=== PATIENT | female | born 1945 | race Caucasian/White ===

== ENCOUNTER 2019-05-22 14:40 | Inpatient (IN) | payer OTHER ==
[2019-05-22 15:23] LABS: ADD MAN DIFF? NO
[2019-05-22 15:24] LABS: BASOPHIL # 0.1 10^3/ul (0.0-0.1); BASOPHILS % 0.6 % (0.0-2.0); EOSINOPHILS # 0.7 10^3/ul (0.0-0.5); HEMOGLOBIN 11.3 g/dl (12.0-16.0); LYMPHOCYTES # 2.1 10^3/ul (0.8-2.9); LYMPHOCYTES % 22.4 % (15.0-51.0); MEAN CORPUSCULAR HEMOGLOBIN 31.1 pg (29.0-33.0); MEAN CORPUSCULAR HGB CONC 31.4 g/dl (32.0-37.0); MEAN CORPUSCULAR VOLUME 99.2 fl (82.0-101.0); MEAN PLATELET VOLUME 9.1 fl (7.4-10.4); MONOCYTE # 0.8 10^3/ul (0.3-0.9); NEUTROPHIL # 5.8 10^3/ul (1.6-7.5); NEUTROPHILS % 61.4 % (39.0-77.0); PLATELET COUNT 210 10^3/UL (140-415); RED BLOOD COUNT 3.63 10^6/ul (4.20-5.40); RED CELL DISTRIBUTION WIDTH 13.6 % (11.5-14.5)
[2019-05-22 15:24] LABS: WHITE BLOOD COUNT 9.4 10^3/ul (4.8-10.8)
[2019-05-22] MEDS: ONDANSETRON 4 MG INJ IV ×2 (15:41→23:17)
[2019-05-22 15:43] LABS: INR 1.03; PROTIME 13.6 Sec (11.9-14.9); PT RATIO 1.1
[2019-05-22 15:44] LABS: PARTIAL THROMBOPLASTIN TIME 31.5 Sec (23.0-35.0)
[2019-05-22 16:01] LABS: ALANINE AMINOTRANSFERASE 29 IU/L (13-69); ALBUMIN 3.8 g/dl (3.3-4.9); ALKALINE PHOSPHATASE 151 IU/L (42-121); ANION GAP 7 (5-13); ASPARTATE AMINO TRANSFERASE 52 IU/L (15-46); BILIRUBIN,INDIRECT 0.6 mg/dl (0-1.1); BILIRUBIN,TOTAL 0.6 mg/dl (0.2-1.3); BLOOD UREA NITROGEN 32 mg/dl (7-20); CALCIUM 9.4 mg/dl (8.4-10.2); CARBON DIOXIDE 35 mmol/L (21-31); CHLORIDE 96 mmol/L (97-110); CREATININE 1.37 mg/dl (0.44-1.00); GLUCOSE 129 mg/dl (70-220); LIPASE 579 U/L (23-300); POTASSIUM 3.4 mmol/L (3.5-5.1); SODIUM 138 mmol/L (135-144)
[2019-05-22 16:13] LABS: TROPONIN-I < 0.012 ng/ml (0.000-0.120)
[2019-05-22] MEDS: SOD CHLORIDE 0.9% 1,000 ML IV (16:41)
[2019-05-22 16:59] LABS: ADD UMIC YES; UR ASCORBIC ACID NEGATIVE (NEGATIVE); UR BILIRUBIN (Dip) NEGATIVE (NEGATIVE); UR BLOOD (Dip) 1+ mg/dL (NEGATIVE); UR CLARITY CLEAR (CLEAR); UR COLOR STRAW (YELLOW); UR GLUCOSE (Dip) NEGATIVE (NEGATIVE); UR KETONES (Dip) NEGATIVE (NEGATIVE); UR LEUKOCYTE ESTERASE (Dip) NEGATIVE Leu/ul (NEGATIVE); UR NITRITE (Dip) NEGATIVE (NEGATIVE); UR RBC 0 /HPF (0-5); UR SPECIFIC GRAVITY (Dip) 1.004 (1.003-1.030); UR TOTAL PROTEIN (Dip) NEGATIVE (NEGATIVE); UR UROBILINOGEN (Dip) NEGATIVE (NEGATIVE); UR WBC 0 /HPF (0-5)
[2019-05-22] MEDS: MECLIZINE 12.5 MG TAB PO (17:28)
[2019-05-22] MEDS: IOHEXOL 0 ML (19:13)
[2019-05-22] MEDS: SOD CHLORIDE 0.9% 100 ML (19:13)
[2019-05-22] MEDS: IODIXANOL LOCM 100 ML BTL (19:14)
[2019-05-22] MEDS ORDERED: ONDANSETRON 4 MG INJ IV (19:30)
[2019-05-22] MEDS ORDERED: ACETAMINOPHEN 325 MG TAB PO (19:30)
[2019-05-22] MEDS ORDERED: ONDANSETRON 4 MG TAB PO (21:30)
[2019-05-22] MEDS ORDERED: NACL 0.9% 3 ML SYG IV (21:30)
[2019-05-22] MEDS: BUDESONIDE (NEB) 0.5MG/2ML AMP HHN (21:30)
[2019-05-22] MEDS: ASPIRIN 325 MG TAB PO (21:45)
[2019-05-22] MEDS: DOCUSATE SODIUM 100 MG CAP PO (23:08)
[2019-05-22] MEDS: METOCLOPRAMIDE 10 MG INJ IV (23:17)
[2019-05-23] MEDS ORDERED: DOCUSATE SODIUM 100 MG CAP PO (01:00)
[2019-05-23] MEDS ORDERED: MECLIZINE 25 MG TAB PO (01:00)
[2019-05-23] MEDS ORDERED: LEVOTHYROXINE 100 MCG TAB PO (01:00)
[2019-05-23] MEDS ORDERED: BUMETANIDE 0.5 MG TAB PO ×3 (01:00→09:00)
[2019-05-23] MEDS ORDERED: GLUCOSE GEL 15 GRAM TUBE BUCCAL (02:00)
[2019-05-23] MEDS ORDERED: GLUCAGON 1 MG INJ IM (02:00)
[2019-05-23] MEDS ORDERED: DEXTROSE 50% 50 ML SYRINGE IV ×2 (02:00)
[2019-05-23] MEDS ORDERED: GLUCOSE GEL 15 GRAM TUBE PO ×2 (02:00)
[2019-05-23] MEDS: POTASSIUM CHLORIDE (SR) 20 MEQ TAB PO (02:02)
[2019-05-23] MEDS: INSULIN ASPART [NOVOLOG] 3 ML PEN SC ×6 (02:02→20:25)
[2019-05-23] MEDS: LEVALBUTEROL (NEB) 0.63 MG/3 ML AMP HHN (03:33)
[2019-05-23] MEDS: FUROSEMIDE 20 MG TAB PO (06:46)
[2019-05-23] MEDS: LEVOTHYROXINE 100 MCG TAB PO (06:46)
[2019-05-23 07:14] LABS: MAGNESIUM 2.3 mg/dl (1.7-2.5)
[2019-05-23 07:14] LABS: CHOL/HDL RATIO 4.5 RATIO; CHOLESTEROL 124 mg/dl (100-200); HDL CHOLESTEROL 27 mg/dl (33-92); LDL CHOLESTEROL,CALCULATED 77 mg/dl; TRIGLYCERIDES 101 mg/dl (0-149)
[2019-05-23 07:34] LABS: HEMOGLOBIN A1C 4.9 % (0-5.9)
[2019-05-23 08:53] LABS: ADD MAN DIFF? NO
[2019-05-23 09:08] LABS: BASOPHIL # 0.1 10^3/ul (0.0-0.1); BASOPHILS % 0.5 % (0.0-2.0); EOSINOPHILS # 0.7 10^3/ul (0.0-0.5); EOSINOPHILS % 7.4 % (0.0-7.0); HEMATOCRIT 33.6 % (37.0-47.0); HEMOGLOBIN 10.7 g/dl (12.0-16.0); LYMPHOCYTES # 2.2 10^3/ul (0.8-2.9); MEAN CORPUSCULAR HEMOGLOBIN 32.2 pg (29.0-33.0); MEAN CORPUSCULAR HGB CONC 31.8 g/dl (32.0-37.0); MEAN CORPUSCULAR VOLUME 101.2 fl (82.0-101.0); MONOCYTE # 0.8 10^3/ul (0.3-0.9); MONOCYTES % 9.1 % (0.0-11.0); NEUTROPHIL # 5.4 10^3/ul (1.6-7.5); NEUTROPHILS % 58.2 % (39.0-77.0); PLATELET COUNT 202 10^3/UL (140-415); RED BLOOD COUNT 3.32 10^6/ul (4.20-5.40); RED CELL DISTRIBUTION WIDTH 13.6 % (11.5-14.5)
[2019-05-23 09:08] LABS: WHITE BLOOD COUNT 9.2 10^3/ul (4.8-10.8)
[2019-05-23 09:12] LABS: ALANINE AMINOTRANSFERASE 29 IU/L (13-69); ALBUMIN 3.2 g/dl (3.3-4.9); ALBUMIN/GLOBULIN RATIO 0.86; ALKALINE PHOSPHATASE 140 IU/L (42-121); ANION GAP 9 (5-13); ASPARTATE AMINO TRANSFERASE 46 IU/L (15-46); BILIRUBIN,INDIRECT 0.6 mg/dl (0-1.1); BILIRUBIN,TOTAL 0.6 mg/dl (0.2-1.3); BLOOD UREA NITROGEN 26 mg/dl (7-20); CALCIUM 9.2 mg/dl (8.4-10.2); CARBON DIOXIDE 30 mmol/L (21-31); CHLORIDE 105 mmol/L (97-110); CREATININE 1.14 mg/dl (0.44-1.00); GLUCOSE 68 mg/dl (70-220); POTASSIUM 4.1 mmol/L (3.5-5.1); SODIUM 144 mmol/L (135-144); TOTAL PROTEIN 6.9 g/dl (6.1-8.1)
[2019-05-23] MEDS: BUDESONIDE (NEB) 0.5MG/2ML AMP HHN ×2 (09:22→20:06)
[2019-05-23 09:27] LABS: FREE T3 2.71 pg/ml (2.77-5.27)
[2019-05-23 09:27] LABS: FREE T4 (FREE THYROXINE) 1.52 ng/dl (0.78-2.44)
[2019-05-23] MEDS: DOCUSATE SODIUM 100 MG CAP PO ×2 (09:55→20:25)
[2019-05-23] MEDS: HYDROCORTISONE 25 MG SUPP PR ×2 (09:55→20:24)
[2019-05-23] MEDS: ASPIRIN 81 MG TAB PO (09:55)
[2019-05-23] MEDS: CHOLECALCIFEROL 1,000 UNIT TAB PO (09:55)
[2019-05-23 15:44] LABS: B-TYPE NATRIURETIC PEPTIDE 1420 PG/ML (0-125)
[2019-05-23 19:01] LABS: TROPONIN-I < 0.012 ng/ml (0.000-0.120)
[2019-05-23] MEDS: ATORVASTATIN 80 MG TAB PO (20:24)
[2019-05-24] MEDS: INSULIN ASPART [NOVOLOG] 3 ML PEN SC ×6 (01:00→21:00)
[2019-05-24 01:22] LABS: TROPONIN-I < 0.012 ng/ml (0.000-0.120)
[2019-05-24] MEDS: hydrALAzine 20 MG INJ IV (05:55)
[2019-05-24] MEDS: LEVOTHYROXINE 100 MCG TAB PO (05:55)
[2019-05-24 06:05] LABS: ADD MAN DIFF? NO
[2019-05-24 06:09] LABS: BASOPHIL # 0.1 10^3/ul (0.0-0.1); BASOPHILS % 0.8 % (0.0-2.0); EOSINOPHILS # 0.5 10^3/ul (0.0-0.5); EOSINOPHILS % 5.4 % (0.0-7.0); HEMATOCRIT 34.6 % (37.0-47.0); HEMOGLOBIN 10.9 g/dl (12.0-16.0); LYMPHOCYTES # 2.1 10^3/ul (0.8-2.9); MEAN CORPUSCULAR HGB CONC 31.5 g/dl (32.0-37.0); MEAN CORPUSCULAR VOLUME 101.5 fl (82.0-101.0); MEAN PLATELET VOLUME 9.7 fl (7.4-10.4); MONOCYTE # 0.8 10^3/ul (0.3-0.9); MONOCYTES % 8.1 % (0.0-11.0); NEUTROPHIL # 6.1 10^3/ul (1.6-7.5); NEUTROPHILS % 63.1 % (39.0-77.0); PLATELET COUNT 186 10^3/UL (140-415); RED BLOOD COUNT 3.41 10^6/ul (4.20-5.40); RED CELL DISTRIBUTION WIDTH 13.5 % (11.5-14.5)
[2019-05-24 06:09] LABS: WHITE BLOOD COUNT 9.7 10^3/ul (4.8-10.8)
[2019-05-24 06:42] LABS: ALANINE AMINOTRANSFERASE 20 IU/L (13-69); ALBUMIN 3.2 g/dl (3.3-4.9); ALBUMIN/GLOBULIN RATIO 0.88; ALKALINE PHOSPHATASE 148 IU/L (42-121); ANION GAP 6 (5-13); ASPARTATE AMINO TRANSFERASE 43 IU/L (15-46); BILIRUBIN,INDIRECT 0.7 mg/dl (0-1.1); BILIRUBIN,TOTAL 0.7 mg/dl (0.2-1.3); BLOOD UREA NITROGEN 23 mg/dl (7-20); CALCIUM 9.2 mg/dl (8.4-10.2); CARBON DIOXIDE 31 mmol/L (21-31); CHLORIDE 104 mmol/L (97-110); CREATININE 1.07 mg/dl (0.44-1.00); GLUCOSE 84 mg/dl (70-220); POTASSIUM 4.1 mmol/L (3.5-5.1); SODIUM 141 mmol/L (135-144); TOTAL PROTEIN 6.8 g/dl (6.1-8.1)
[2019-05-24 06:58] LABS: TROPONIN-I < 0.012 ng/ml (0.000-0.120)
[2019-05-24 07:34] LABS: CHOLESTEROL 135 mg/dl (100-200)
[2019-05-24 07:34] LABS: CHOL/HDL RATIO 4.3 RATIO; HDL CHOLESTEROL 31 mg/dl (33-92); LDL CHOLESTEROL,CALCULATED 86 mg/dl; TRIGLYCERIDES 92 mg/dl (0-149)
[2019-05-24] MEDS: DOCUSATE SODIUM 100 MG CAP PO ×2 (09:15→21:41)
[2019-05-24] MEDS: CHOLECALCIFEROL 1,000 UNIT TAB PO (09:15)
[2019-05-24] MEDS: ASPIRIN 81 MG TAB PO (09:15)
[2019-05-24] MEDS: HYDROCORTISONE 25 MG SUPP PR ×2 (09:15→21:40)
[2019-05-24] MEDS: BUDESONIDE (NEB) 0.5MG/2ML AMP HHN ×2 (09:28→20:05)
[2019-05-24] MEDS: ACETAMINOPHEN 325 MG TAB PO (10:26)
[2019-05-24] MEDS: ONDANSETRON 4 MG INJ IV (17:39)
[2019-05-24] MEDS: ATORVASTATIN 80 MG TAB PO (21:40)
[2019-05-25] MEDS: hydrALAzine 20 MG INJ IV (01:02)
[2019-05-25 05:13] LABS: ADD MAN DIFF? NO
[2019-05-25 05:18] LABS: BASOPHIL # 0.1 10^3/ul (0.0-0.1); BASOPHILS % 0.7 % (0.0-2.0); EOSINOPHILS # 0.7 10^3/ul (0.0-0.5); EOSINOPHILS % 6.8 % (0.0-7.0); HEMATOCRIT 36.2 % (37.0-47.0); HEMOGLOBIN 11.4 g/dl (12.0-16.0); LYMPHOCYTES # 2.3 10^3/ul (0.8-2.9); LYMPHOCYTES % 23.2 % (15.0-51.0); MEAN CORPUSCULAR HEMOGLOBIN 31.7 pg (29.0-33.0); MEAN CORPUSCULAR HGB CONC 31.5 g/dl (32.0-37.0); MEAN CORPUSCULAR VOLUME 100.6 fl (82.0-101.0); MEAN PLATELET VOLUME 9.3 fl (7.4-10.4); NEUTROPHIL # 5.9 10^3/ul (1.6-7.5); NEUTROPHILS % 58.8 % (39.0-77.0); PLATELET COUNT 195 10^3/UL (140-415); RED CELL DISTRIBUTION WIDTH 13.4 % (11.5-14.5)
[2019-05-25 06:05] LABS: MAGNESIUM 2.2 mg/dl (1.7-2.5)
[2019-05-25 06:14] LABS: ALANINE AMINOTRANSFERASE 22 IU/L (13-69); ALBUMIN 3.3 g/dl (3.3-4.9); ALBUMIN/GLOBULIN RATIO 0.89; ALKALINE PHOSPHATASE 151 IU/L (42-121); ANION GAP 7 (5-13); ASPARTATE AMINO TRANSFERASE 43 IU/L (15-46); BILIRUBIN,INDIRECT 0.8 mg/dl (0-1.1); BILIRUBIN,TOTAL 0.8 mg/dl (0.2-1.3); BLOOD UREA NITROGEN 26 mg/dl (7-20); CALCIUM 9.2 mg/dl (8.4-10.2); CARBON DIOXIDE 30 mmol/L (21-31); CHLORIDE 105 mmol/L (97-110); CREATININE 1.12 mg/dl (0.44-1.00); GLUCOSE 98 mg/dl (70-220); POTASSIUM 3.7 mmol/L (3.5-5.1); SODIUM 142 mmol/L (135-144)
[2019-05-25] MEDS: LEVOTHYROXINE 100 MCG TAB PO (06:20)
[2019-05-25] MEDS: INSULIN ASPART [NOVOLOG] 3 ML PEN SC ×4 (07:00→21:00)
[2019-05-25] MEDS: BUDESONIDE (NEB) 0.5MG/2ML AMP HHN ×2 (07:59→21:29)
[2019-05-25] MEDS: ASPIRIN 81 MG TAB PO (08:17)
[2019-05-25] MEDS: CHOLECALCIFEROL 1,000 UNIT TAB PO (08:17)
[2019-05-25] MEDS: LISINOPRIL 20 MG TAB PO (08:18)
[2019-05-25] MEDS: HYDROCORTISONE 25 MG SUPP PR ×2 (08:18→21:03)
[2019-05-25] MEDS: SERTRALINE 50 MG TAB PO (08:18)
[2019-05-25] MEDS: ONDANSETRON 4 MG INJ IV (08:19)
[2019-05-25] MEDS: DOCUSATE SODIUM 100 MG CAP PO ×2 (10:22→21:03)
[2019-05-25] MEDS: PANTOPRAZOLE 40 MG INJ IV (10:22)
[2019-05-25 10:24] LABS: LIPASE 245 U/L (23-300)
[2019-05-25] MEDS: SUCRALFATE (100 MG/ML) 10ML CUP PO ×3 (12:07→21:03)
[2019-05-25] MEDS: SCOPOLAMINE 1.5 MG PATCH TRANSDERM (12:07)
[2019-05-25] MEDS: METOCLOPRAMIDE 10 MG INJ IV (16:18)
[2019-05-25] MEDS: ATORVASTATIN 80 MG TAB PO (21:04)
[2019-05-26] MEDS: PANTOPRAZOLE 40 MG INJ IV ×2 (05:29→17:12)
[2019-05-26] MEDS: LEVOTHYROXINE 100 MCG TAB PO (05:29)
[2019-05-26 05:52] LABS: ADD MAN DIFF? NO
[2019-05-26 06:02] LABS: BASOPHIL # 0.1 10^3/ul (0.0-0.1); BASOPHILS % 0.6 % (0.0-2.0); EOSINOPHILS # 0.7 10^3/ul (0.0-0.5); EOSINOPHILS % 7.6 % (0.0-7.0); HEMATOCRIT 35.7 % (37.0-47.0); HEMOGLOBIN 11.1 g/dl (12.0-16.0); LYMPHOCYTES # 1.9 10^3/ul (0.8-2.9); LYMPHOCYTES % 22.4 % (15.0-51.0); MEAN CORPUSCULAR HEMOGLOBIN 31.5 pg (29.0-33.0); MEAN CORPUSCULAR HGB CONC 31.1 g/dl (32.0-37.0); MEAN CORPUSCULAR VOLUME 101.4 fl (82.0-101.0); MEAN PLATELET VOLUME 9.6 fl (7.4-10.4); MONOCYTE # 0.8 10^3/ul (0.3-0.9); MONOCYTES % 9.7 % (0.0-11.0); NEUTROPHIL # 5.1 10^3/ul (1.6-7.5); NEUTROPHILS % 59.1 % (39.0-77.0); PLATELET COUNT 196 10^3/UL (140-415); RED BLOOD COUNT 3.52 10^6/ul (4.20-5.40); RED CELL DISTRIBUTION WIDTH 13.5 % (11.5-14.5)
[2019-05-26 06:02] LABS: WHITE BLOOD COUNT 8.7 10^3/ul (4.8-10.8)
[2019-05-26 06:20] LABS: MAGNESIUM 2.1 mg/dl (1.7-2.5)
[2019-05-26 06:35] LABS: ALANINE AMINOTRANSFERASE 26 IU/L (13-69); ALBUMIN 3.4 g/dl (3.3-4.9); ALBUMIN/GLOBULIN RATIO 0.87; ALKALINE PHOSPHATASE 148 IU/L (42-121); ANION GAP 8 (5-13); ASPARTATE AMINO TRANSFERASE 43 IU/L (15-46); BILIRUBIN,INDIRECT 0.8 mg/dl (0-1.1); BILIRUBIN,TOTAL 0.8 mg/dl (0.2-1.3); BLOOD UREA NITROGEN 21 mg/dl (7-20); CALCIUM 9.2 mg/dl (8.4-10.2); CARBON DIOXIDE 29 mmol/L (21-31); CHLORIDE 104 mmol/L (97-110); CREATININE 1.12 mg/dl (0.44-1.00); GLUCOSE 108 mg/dl (70-220); POTASSIUM 3.8 mmol/L (3.5-5.1); SODIUM 141 mmol/L (135-144); TOTAL PROTEIN 7.3 g/dl (6.1-8.1)
[2019-05-26] MEDS: INSULIN ASPART [NOVOLOG] 3 ML PEN SC ×4 (07:00→21:50)
[2019-05-26] MEDS: ONDANSETRON 4 MG INJ IV (08:46)
[2019-05-26] MEDS: SUCRALFATE (100 MG/ML) 10ML CUP PO ×4 (08:47→20:17)
[2019-05-26] MEDS: HYDROCORTISONE 25 MG SUPP PR ×2 (08:47→20:17)
[2019-05-26] MEDS: ASPIRIN 81 MG TAB PO (08:47)
[2019-05-26] MEDS: LISINOPRIL 20 MG TAB PO (08:47)
[2019-05-26] MEDS: DOCUSATE SODIUM 100 MG CAP PO ×2 (08:47→20:17)
[2019-05-26] MEDS: CHOLECALCIFEROL 1,000 UNIT TAB PO (08:47)
[2019-05-26] MEDS: SERTRALINE 50 MG TAB PO (08:48)
[2019-05-26] MEDS: BUDESONIDE (NEB) 0.5MG/2ML AMP HHN ×2 (09:53→20:13)
[2019-05-26] MEDS: POLYETHYLENE GLYCOL 17 GM PACKET PO (12:12)
[2019-05-26] MEDS: HYDROCODONE/APAP (5/325) TAB PO (14:36)
[2019-05-26 14:48] LABS: HEPATITIS B SURFACE ANTIGEN NEGATIVE (NEGATIVE)
[2019-05-26 15:07] LABS: HEPATITIS B CORE ANTIBODY NEGATIVE (NEGATIVE); HEPATITIS C VIRAL ANTIBODY NEGATIVE (NEGATIVE)
[2019-05-26] MEDS: ATORVASTATIN 80 MG TAB PO (20:17)
[2019-05-27 06:02] LABS: ADD MAN DIFF? NO
[2019-05-27 06:05] LABS: BASOPHIL # 0.1 10^3/ul (0.0-0.1); BASOPHILS % 0.7 % (0.0-2.0); EOSINOPHILS # 0.7 10^3/ul (0.0-0.5); EOSINOPHILS % 9.1 % (0.0-7.0); HEMATOCRIT 36.4 % (37.0-47.0); HEMOGLOBIN 11.2 g/dl (12.0-16.0); LYMPHOCYTES % 26.4 % (15.0-51.0); MEAN CORPUSCULAR HEMOGLOBIN 31.3 pg (29.0-33.0); MEAN CORPUSCULAR HGB CONC 30.8 g/dl (32.0-37.0); MEAN CORPUSCULAR VOLUME 101.7 fl (82.0-101.0); MEAN PLATELET VOLUME 9.6 fl (7.4-10.4); MONOCYTE # 0.8 10^3/ul (0.3-0.9); MONOCYTES % 10.6 % (0.0-11.0); NEUTROPHIL # 3.9 10^3/ul (1.6-7.5); NEUTROPHILS % 52.5 % (39.0-77.0); PLATELET COUNT 182 10^3/UL (140-415); RED BLOOD COUNT 3.58 10^6/ul (4.20-5.40); RED CELL DISTRIBUTION WIDTH 13.4 % (11.5-14.5)
[2019-05-27 06:05] LABS: WHITE BLOOD COUNT 7.5 10^3/ul (4.8-10.8)
[2019-05-27] MEDS: PANTOPRAZOLE 40 MG INJ IV ×2 (06:18→17:11)
[2019-05-27] MEDS: LEVOTHYROXINE 100 MCG TAB PO (06:19)
[2019-05-27 06:38] LABS: ALANINE AMINOTRANSFERASE 25 IU/L (13-69); ALBUMIN 3.5 g/dl (3.3-4.9); ALBUMIN/GLOBULIN RATIO 0.97; ALKALINE PHOSPHATASE 140 IU/L (42-121); ANION GAP 5 (5-13); ASPARTATE AMINO TRANSFERASE 48 IU/L (15-46); BILIRUBIN,INDIRECT 0.8 mg/dl (0-1.1); BILIRUBIN,TOTAL 0.8 mg/dl (0.2-1.3); BLOOD UREA NITROGEN 22 mg/dl (7-20); CALCIUM 8.9 mg/dl (8.4-10.2); CARBON DIOXIDE 32 mmol/L (21-31); CHLORIDE 105 mmol/L (97-110); CREATININE 1.11 mg/dl (0.44-1.00); GLUCOSE 99 mg/dl (70-220); POTASSIUM 3.8 mmol/L (3.5-5.1); SODIUM 142 mmol/L (135-144); TOTAL PROTEIN 7.1 g/dl (6.1-8.1)
[2019-05-27] MEDS: INSULIN ASPART [NOVOLOG] 3 ML PEN SC ×4 (07:00→20:16)
[2019-05-27] MEDS: BUDESONIDE (NEB) 0.5MG/2ML AMP HHN ×2 (07:39→20:06)
[2019-05-27 08:07] LABS: MAGNESIUM 2.1 mg/dl (1.7-2.5)
[2019-05-27] MEDS: DOCUSATE SODIUM 100 MG CAP PO ×2 (09:36→20:24)
[2019-05-27] MEDS: HYDROCORTISONE 25 MG SUPP PR ×2 (09:36→20:16)
[2019-05-27] MEDS: SERTRALINE 50 MG TAB PO (09:36)
[2019-05-27] MEDS: SUCRALFATE (100 MG/ML) 10ML CUP PO ×4 (09:36→20:16)
[2019-05-27] MEDS: ASPIRIN 81 MG TAB PO (09:36)
[2019-05-27] MEDS: CHOLECALCIFEROL 1,000 UNIT TAB PO (09:36)
[2019-05-27] MEDS: LISINOPRIL 20 MG TAB PO (09:37)
[2019-05-27] MEDS: BISACODYL (EC) 5 MG TAB PO (12:27)
[2019-05-27 13:47] LABS: MITOCHONDRIAL TB NEGATIVE (NEGATIVE); SMOOTH MUSCLE AB SCREEN NEGATIVE (NEGATIVE)
[2019-05-27 19:21] LABS: ANA SCREEN POSITIVE (NEGATIVE)
[2019-05-27] MEDS: MIRTAZAPINE 15 MG TAB PO (20:16)
[2019-05-27] MEDS: ATORVASTATIN 80 MG TAB PO (20:16)
[2019-05-28] MEDS: PANTOPRAZOLE 40 MG INJ IV ×2 (05:27→18:36)
[2019-05-28] MEDS: LEVOTHYROXINE 100 MCG TAB PO (05:28)
[2019-05-28] MEDS: ONDANSETRON 4 MG INJ IV (05:36)
[2019-05-28 06:41] LABS: AMMONIA 16 umol/l (9-30)
[2019-05-28] MEDS: BUDESONIDE (NEB) 0.5MG/2ML AMP HHN ×2 (07:30→21:46)
[2019-05-28] MEDS: INSULIN ASPART [NOVOLOG] 3 ML PEN SC ×4 (08:00→21:00)
[2019-05-28] MEDS: DOCUSATE SODIUM 100 MG CAP PO ×2 (09:34→20:47)
[2019-05-28] MEDS: CHOLECALCIFEROL 1,000 UNIT TAB PO (09:34)
[2019-05-28] MEDS: SERTRALINE 50 MG TAB PO (09:35)
[2019-05-28] MEDS: SUCRALFATE (100 MG/ML) 10ML CUP PO ×4 (09:35→20:47)
[2019-05-28] MEDS: HYDROCORTISONE 25 MG SUPP PR ×2 (09:35→20:47)
[2019-05-28] MEDS: ASPIRIN 81 MG TAB PO (09:35)
[2019-05-28] MEDS: LISINOPRIL 20 MG TAB PO (09:36)
[2019-05-28] MEDS: SCOPOLAMINE 1.5 MG PATCH TRANSDERM (11:39)
[2019-05-28] MEDS: LORAZEPAM 0.5 MG TAB PO (16:24)
[2019-05-28 19:57] LABS: ANA PATTERN HOMOGENEOUS
[2019-05-28] MEDS: ATORVASTATIN 80 MG TAB PO (20:47)
[2019-05-28] MEDS: MIRTAZAPINE 15 MG TAB PO (20:47)
[2019-05-29] MEDS: PANTOPRAZOLE 40 MG INJ IV ×2 (05:15→17:42)
[2019-05-29] MEDS: hydrALAzine 20 MG INJ IV (05:16)
[2019-05-29] MEDS: LEVOTHYROXINE 100 MCG TAB PO (05:16)
[2019-05-29 06:11] LABS: ADD MAN DIFF? NO
[2019-05-29 06:14] LABS: BASOPHIL # 0.1 10^3/ul (0.0-0.1); BASOPHILS % 0.8 % (0.0-2.0); EOSINOPHILS # 0.6 10^3/ul (0.0-0.5); EOSINOPHILS % 6.3 % (0.0-7.0); HEMATOCRIT 36.9 % (37.0-47.0); HEMOGLOBIN 11.6 g/dl (12.0-16.0); LYMPHOCYTES # 1.9 10^3/ul (0.8-2.9); LYMPHOCYTES % 21.3 % (15.0-51.0); MEAN CORPUSCULAR HEMOGLOBIN 31.5 pg (29.0-33.0); MEAN CORPUSCULAR HGB CONC 31.4 g/dl (32.0-37.0); MEAN CORPUSCULAR VOLUME 100.3 fl (82.0-101.0); MEAN PLATELET VOLUME 9.9 fl (7.4-10.4); MONOCYTE # 0.8 10^3/ul (0.3-0.9); MONOCYTES % 8.9 % (0.0-11.0); NEUTROPHIL # 5.6 10^3/ul (1.6-7.5); NEUTROPHILS % 62.3 % (39.0-77.0); PLATELET COUNT 196 10^3/UL (140-415); RED BLOOD COUNT 3.68 10^6/ul (4.20-5.40); RED CELL DISTRIBUTION WIDTH 13.4 % (11.5-14.5)
[2019-05-29 06:37] LABS: ANION GAP 7 (5-13); BLOOD UREA NITROGEN 20 mg/dl (7-20); CALCIUM 9.4 mg/dl (8.4-10.2); CARBON DIOXIDE 29 mmol/L (21-31); CHLORIDE 107 mmol/L (97-110); CREATININE 0.96 mg/dl (0.44-1.00); GLUCOSE 102 mg/dl (70-220); PHOSPHORUS 2.6 mg/dl (2.5-4.9); POTASSIUM 3.3 mmol/L (3.5-5.1); SODIUM 143 mmol/L (135-144)
[2019-05-29] MEDS: INSULIN ASPART [NOVOLOG] 3 ML PEN SC ×4 (08:00→20:31)
[2019-05-29] MEDS: BUDESONIDE (NEB) 0.5MG/2ML AMP HHN ×2 (09:00→21:02)
[2019-05-29] MEDS: SUCRALFATE (100 MG/ML) 10ML CUP PO ×4 (09:15→20:32)
[2019-05-29] MEDS: CHOLECALCIFEROL 1,000 UNIT TAB PO (09:15)
[2019-05-29] MEDS: HYDROCORTISONE 25 MG SUPP PR ×2 (09:16→20:36)
[2019-05-29] MEDS: DOCUSATE SODIUM 100 MG CAP PO ×2 (09:16→20:38)
[2019-05-29] MEDS: SERTRALINE 50 MG TAB PO (09:16)
[2019-05-29] MEDS: ASPIRIN 81 MG TAB PO (09:17)
[2019-05-29] MEDS: LISINOPRIL 20 MG TAB PO (09:17)
[2019-05-29] MEDS: ONDANSETRON 4 MG INJ IV (10:20)
[2019-05-29] MEDS: POTASSIUM CHLORIDE 20 MEQ POWDER FOR ORAL SOLN PO (10:20)
[2019-05-29] MEDS: MAGNESIUM HYDROXIDE 30ML CUP PO (14:21)
[2019-05-29] MEDS: BISACODYL 10 MG SUPP PR (20:32)
[2019-05-29] MEDS: POLYETHYLENE GLYCOL 17 GM PACKET PO (20:32)
[2019-05-29] MEDS: ATORVASTATIN 80 MG TAB PO (20:32)
[2019-05-29] MEDS: MIRTAZAPINE 15 MG TAB PO (20:32)
[2019-05-30] MEDS: LEVOTHYROXINE 100 MCG TAB PO (05:36)
[2019-05-30] MEDS: HYDROCODONE/APAP (5/325) TAB PO (05:37)
[2019-05-30] MEDS: SOD CHLORIDE 0.9% 500 ML IV (05:37)
[2019-05-30] MEDS: PANTOPRAZOLE 40 MG INJ IV (05:40)
[2019-05-30 06:08] LABS: ADD MAN DIFF? NO
[2019-05-30 06:11] LABS: BASOPHIL # 0.1 10^3/ul (0.0-0.1); BASOPHILS % 0.5 % (0.0-2.0); EOSINOPHILS # 0.2 10^3/ul (0.0-0.5); EOSINOPHILS % 1.6 % (0.0-7.0); HEMATOCRIT 35.4 % (37.0-47.0); LYMPHOCYTES # 1.6 10^3/ul (0.8-2.9); LYMPHOCYTES % 10.9 % (15.0-51.0); MEAN CORPUSCULAR HEMOGLOBIN 31.5 pg (29.0-33.0); MEAN CORPUSCULAR HGB CONC 31.1 g/dl (32.0-37.0); MEAN CORPUSCULAR VOLUME 101.4 fl (82.0-101.0); MEAN PLATELET VOLUME 10.1 fl (7.4-10.4); MONOCYTE # 1.2 10^3/ul (0.3-0.9); MONOCYTES % 8.3 % (0.0-11.0); NEUTROPHIL # 11.4 10^3/ul (1.6-7.5); NEUTROPHILS % 78.1 % (39.0-77.0); PLATELET COUNT 189 10^3/UL (140-415); RED BLOOD COUNT 3.49 10^6/ul (4.20-5.40); RED CELL DISTRIBUTION WIDTH 13.6 % (11.5-14.5)
[2019-05-30 06:11] LABS: WHITE BLOOD COUNT 14.6 10^3/ul (4.8-10.8)
[2019-05-30 07:32] LABS: ANION GAP 6 (5-13); BLOOD UREA NITROGEN 25 mg/dl (7-20); CALCIUM 8.8 mg/dl (8.4-10.2); CARBON DIOXIDE 27 mmol/L (21-31); CHLORIDE 106 mmol/L (97-110); CREATININE 1.15 mg/dl (0.44-1.00); GLUCOSE 113 mg/dl (70-220); MAGNESIUM 2.2 mg/dl (1.7-2.5); PHOSPHORUS 2.8 mg/dl (2.5-4.9); POTASSIUM 4.4 mmol/L (3.5-5.1); SODIUM 139 mmol/L (135-144)
[2019-05-30] MEDS: INSULIN ASPART [NOVOLOG] 3 ML PEN SC ×4 (07:45→21:00)
[2019-05-30] MEDS: BUDESONIDE (NEB) 0.5MG/2ML AMP HHN ×2 (09:24→21:29)
[2019-05-30] MEDS: DOCUSATE SODIUM 100 MG CAP PO ×2 (09:45→21:56)
[2019-05-30] MEDS: SUCRALFATE (100 MG/ML) 10ML CUP PO ×4 (09:45→21:55)
[2019-05-30] MEDS: CHOLECALCIFEROL 1,000 UNIT TAB PO (09:45)
[2019-05-30] MEDS: SENNA TAB PO ×2 (09:45→21:55)
[2019-05-30] MEDS: SERTRALINE 50 MG TAB PO (09:45)
[2019-05-30] MEDS: ASPIRIN 81 MG TAB PO (09:45)
[2019-05-30] MEDS: HYDROCORTISONE 25 MG SUPP PR ×2 (09:45→21:56)
[2019-05-30] MEDS: LISINOPRIL 20 MG TAB PO (09:46)
[2019-05-30 13:42] LABS: ADD UMIC NO; UR ASCORBIC ACID NEGATIVE (NEGATIVE); UR BILIRUBIN (Dip) NEGATIVE (NEGATIVE); UR BLOOD (Dip) NEGATIVE (NEGATIVE); UR CLARITY CLEAR (CLEAR); UR COLOR YELLOW (YELLOW); UR GLUCOSE (Dip) NEGATIVE (NEGATIVE); UR KETONES (Dip) NEGATIVE (NEGATIVE); UR LEUKOCYTE ESTERASE (Dip) NEGATIVE Leu/ul (NEGATIVE); UR NITRITE (Dip) NEGATIVE (NEGATIVE); UR TOTAL PROTEIN (Dip) NEGATIVE (NEGATIVE); UR UROBILINOGEN (Dip) NEGATIVE (NEGATIVE)
[2019-05-30] MEDS: MIRTAZAPINE 15 MG TAB PO (21:55)
[2019-05-30] MEDS: ATORVASTATIN 80 MG TAB PO (21:55)
[2019-05-31 06:19] LABS: ADD MAN DIFF? NO
[2019-05-31] MEDS: LEVOTHYROXINE 100 MCG TAB PO (06:20)
[2019-05-31] MEDS: PANTOPRAZOLE (EC) 40 MG TAB PO (06:20)
[2019-05-31 06:30] LABS: BASOPHIL # 0.1 10^3/ul (0.0-0.1); BASOPHILS % 0.8 % (0.0-2.0); EOSINOPHILS # 0.5 10^3/ul (0.0-0.5); EOSINOPHILS % 6.1 % (0.0-7.0); HEMATOCRIT 34.7 % (37.0-47.0); HEMOGLOBIN 10.3 g/dl (12.0-16.0); LYMPHOCYTES # 2.1 10^3/ul (0.8-2.9); MEAN CORPUSCULAR HEMOGLOBIN 30.9 pg (29.0-33.0); MEAN CORPUSCULAR HGB CONC 29.7 g/dl (32.0-37.0); MEAN CORPUSCULAR VOLUME 104.2 fl (82.0-101.0); MEAN PLATELET VOLUME 10.3 fl (7.4-10.4); MONOCYTE # 0.7 10^3/ul (0.3-0.9); MONOCYTES % 9.1 % (0.0-11.0); NEUTROPHIL # 4.4 10^3/ul (1.6-7.5); NEUTROPHILS % 56.7 % (39.0-77.0); PLATELET COUNT 152 10^3/UL (140-415); RED BLOOD COUNT 3.33 10^6/ul (4.20-5.40); RED CELL DISTRIBUTION WIDTH 13.4 % (11.5-14.5)
[2019-05-31 06:30] LABS: WHITE BLOOD COUNT 7.7 10^3/ul (4.8-10.8)
[2019-05-31 07:27] LABS: ANION GAP 4 (5-13); BLOOD UREA NITROGEN 30 mg/dl (7-20); CALCIUM 8.8 mg/dl (8.4-10.2); CARBON DIOXIDE 31 mmol/L (21-31); CHLORIDE 105 mmol/L (97-110); CREATININE 1.32 mg/dl (0.44-1.00); GLUCOSE 103 mg/dl (70-220); MAGNESIUM 2.3 mg/dl (1.7-2.5); PHOSPHORUS 3.6 mg/dl (2.5-4.9); POTASSIUM 4.2 mmol/L (3.5-5.1); SODIUM 140 mmol/L (135-144)
[2019-05-31] MEDS: INSULIN ASPART [NOVOLOG] 3 ML PEN SC ×4 (07:34→21:00)
[2019-05-31] MEDS: SENNA TAB PO ×2 (08:17→21:00)
[2019-05-31] MEDS: HYDROCORTISONE 25 MG SUPP PR ×2 (08:17→20:59)
[2019-05-31] MEDS: SERTRALINE 50 MG TAB PO (08:17)
[2019-05-31] MEDS: LISINOPRIL 20 MG TAB PO (08:17)
[2019-05-31] MEDS: CHOLECALCIFEROL 1,000 UNIT TAB PO (08:17)
[2019-05-31] MEDS: SUCRALFATE (100 MG/ML) 10ML CUP PO ×4 (08:17→20:59)
[2019-05-31] MEDS: DOCUSATE SODIUM 100 MG CAP PO ×2 (08:22→21:00)
[2019-05-31] MEDS: ASPIRIN 81 MG TAB PO (08:22)
[2019-05-31] MEDS: BUDESONIDE (NEB) 0.5MG/2ML AMP HHN ×2 (08:49→20:03)
[2019-05-31] MEDS ORDERED: SOD CHLORIDE 0.9% 500 ML IV (09:00)
[2019-05-31] MEDS ORDERED: SOD CHLORIDE 0.9% 1,000 ML IV (09:00)
[2019-05-31] MEDS: SOD CHLORIDE 0.9% 500 ML IV (09:29)
[2019-05-31] MEDS: SCOPOLAMINE 1.5 MG PATCH TRANSDERM (11:51)
[2019-05-31 13:36] LABS: CREATININE,URINE RANDOM 101.28 mg/dl (20-320)
[2019-05-31 13:36] LABS: SODIUM,URINE RANDOM 43 mmol/L (30-90)
[2019-05-31 13:47] LABS: PARATHYROID HORMONE 47.2 pg/ml (24.0-73.0)
[2019-05-31] MEDS: hydrALAzine 20 MG INJ IV (16:03)
[2019-05-31] MEDS: NIFEdipine (XL) 30 MG TAB PO (17:44)
[2019-05-31 19:47] LABS: TROPONIN-I < 0.012 ng/ml (0.000-0.120)
[2019-05-31] MEDS: ATORVASTATIN 80 MG TAB PO (21:00)
[2019-05-31] MEDS: MIRTAZAPINE 15 MG TAB PO (21:00)
[2019-06-01] MEDS: PANTOPRAZOLE (EC) 40 MG TAB PO (05:15)
[2019-06-01] MEDS: LEVOTHYROXINE 100 MCG TAB PO (05:15)
[2019-06-01 06:04] LABS: ADD MAN DIFF? NO
[2019-06-01 06:14] LABS: BASOPHIL # 0.1 10^3/ul (0.0-0.1); BASOPHILS % 0.7 % (0.0-2.0); EOSINOPHILS # 0.6 10^3/ul (0.0-0.5); EOSINOPHILS % 7.1 % (0.0-7.0); HEMATOCRIT 32.8 % (37.0-47.0); HEMOGLOBIN 10.3 g/dl (12.0-16.0); LYMPHOCYTES % 24.5 % (15.0-51.0); MEAN CORPUSCULAR HEMOGLOBIN 31.9 pg (29.0-33.0); MEAN CORPUSCULAR HGB CONC 31.4 g/dl (32.0-37.0); MEAN CORPUSCULAR VOLUME 101.5 fl (82.0-101.0); MEAN PLATELET VOLUME 9.9 fl (7.4-10.4); MONOCYTE # 0.7 10^3/ul (0.3-0.9); MONOCYTES % 8.5 % (0.0-11.0); NEUTROPHIL # 4.8 10^3/ul (1.6-7.5); NEUTROPHILS % 58.7 % (39.0-77.0); PLATELET COUNT 180 10^3/UL (140-415); RED BLOOD COUNT 3.23 10^6/ul (4.20-5.40); RED CELL DISTRIBUTION WIDTH 13.3 % (11.5-14.5)
[2019-06-01 06:14] LABS: WHITE BLOOD COUNT 8.2 10^3/ul (4.8-10.8)
[2019-06-01 06:31] LABS: ANION GAP 7 (5-13); BLOOD UREA NITROGEN 24 mg/dl (7-20); CALCIUM 8.9 mg/dl (8.4-10.2); CARBON DIOXIDE 27 mmol/L (21-31); CHLORIDE 110 mmol/L (97-110); CREATININE 0.96 mg/dl (0.44-1.00); GLUCOSE 101 mg/dl (70-220); POTASSIUM 3.6 mmol/L (3.5-5.1); SODIUM 144 mmol/L (135-144)
[2019-06-01] MEDS: INSULIN ASPART [NOVOLOG] 3 ML PEN SC ×4 (07:41→21:00)
[2019-06-01] MEDS: SENNA TAB PO (08:28)
[2019-06-01] MEDS: SUCRALFATE (100 MG/ML) 10ML CUP PO ×4 (08:28→20:32)
[2019-06-01] MEDS: CHOLECALCIFEROL 1,000 UNIT TAB PO (08:28)
[2019-06-01] MEDS: HYDROCORTISONE 25 MG SUPP PR ×2 (08:29→20:32)
[2019-06-01] MEDS: ASPIRIN 81 MG TAB PO (08:29)
[2019-06-01] MEDS: DOCUSATE SODIUM 100 MG CAP PO (08:29)
[2019-06-01] MEDS: LISINOPRIL 20 MG TAB PO (08:30)
[2019-06-01] MEDS: NIFEdipine (XL) 30 MG TAB PO (08:30)
[2019-06-01] MEDS: SERTRALINE 50 MG TAB PO (08:30)
[2019-06-01] MEDS: BUDESONIDE (NEB) 0.5MG/2ML AMP HHN ×2 (09:18→21:21)
[2019-06-01 12:37] LABS: PROTEIN, TOTAL 6.4 g/dL (6.1-8.1)
[2019-06-01 15:01] LABS: CREATININE, RANDOM URINE 100 mg/dL (20-275); MICROALBUMIN 2.7 mg/dL; MICROALBUMIN/CREATININE RATIO 27 (<30)
[2019-06-01] MEDS: LORAZEPAM 0.5 MG TAB PO (18:38)
[2019-06-01] MEDS: MIRTAZAPINE 15 MG TAB PO (20:32)
[2019-06-01] MEDS: ATORVASTATIN 80 MG TAB PO (20:32)
[2019-06-01] MEDS: SENNA/DOCUSATE NA (8.6MG/50MG) TAB PO (20:32)
[2019-06-02] MEDS: PANTOPRAZOLE (EC) 40 MG TAB PO (06:13)
[2019-06-02] MEDS: LEVOTHYROXINE 100 MCG TAB PO (06:13)
[2019-06-02] MEDS: INSULIN ASPART [NOVOLOG] 3 ML PEN SC ×3 (08:00→17:00)
[2019-06-02] MEDS: SERTRALINE 50 MG TAB PO (08:39)
[2019-06-02] MEDS: ASPIRIN 81 MG TAB PO (08:39)
[2019-06-02] MEDS: CHOLECALCIFEROL 1,000 UNIT TAB PO (08:39)
[2019-06-02] MEDS: SENNA/DOCUSATE NA (8.6MG/50MG) TAB PO (08:39)
[2019-06-02] MEDS: POLYETHYLENE GLYCOL 17 GM PACKET PO (08:39)
[2019-06-02] MEDS: HYDROCORTISONE 25 MG SUPP PR (08:40)
[2019-06-02] MEDS: SUCRALFATE (100 MG/ML) 10ML CUP PO ×3 (08:40→16:59)
[2019-06-02] MEDS: LISINOPRIL 20 MG TAB PO (08:40)
[2019-06-02] MEDS: BUDESONIDE (NEB) 0.5MG/2ML AMP HHN (09:46)
[2019-06-02] MEDS: NIFEdipine (XL) 30 MG TAB PO (10:32)
[2019-06-02 15:36] LABS: CREATININE, RANDOM URINE 102 mg/dL (20-275); PROTEIN/CREATININE RATIO 255 mg/g creat (21-161)
[2019-06-02 18:01] LABS: ALBUMIN 3.2 g/dL (3.8-4.8); ALPHA-1-GLOBULINS 0.4 g/dL (0.2-0.3); ALPHA-2-GLOBULINS 0.6 g/dL (0.5-0.9); BETA 2 GLOBULINS 0.4 g/dL (0.2-0.5); BETA GLOBULINS 0.4 g/dL (0.4-0.6); GAMMA GLOBULINS 1.5 g/dL (0.8-1.7)
== END 2019-06-02 18:55 | DRG 149 ==
LOC: 6WM 05-23 00:48 → E/R 14:40 → 6WM 19:25
PROVIDERS: Family Medicine
DX: R42 Dizziness and giddiness (principal); N17.9 Acute kidney failure, unspecified; I31.3 Pericardial effusion (noninflammatory); I66.03 Occlusion and stenosis of bilateral middle cerebral arteries; E11.8 Type 2 diabetes mellitus with unspecified complications; E86.0 Dehydration; I35.0 Nonrheumatic aortic (valve) stenosis; E78.5 Hyperlipidemia, unspecified; I10 Essential (primary) hypertension; E03.9 Hypothyroidism, unspecified; K74.60 Unspecified cirrhosis of liver; Z86.73 Personal history of transient ischemic attack (TIA), and cerebral infarction without residual deficits; J44.9 Chronic obstructive pulmonary disease, unspecified; G93.89 Other specified disorders of brain; R51 Headache; Z95.3 Presence of xenogenic heart valve; Z95.1 Presence of aortocoronary bypass graft; R10.13 Epigastric pain; R11.0 Nausea; F32.9 Major depressive disorder, single episode, unspecified; K29.70 Gastritis, unspecified, without bleeding; R55 Syncope and collapse
CPT/HCPCS: 36415; 70450; 70496; 70498; 70551; 71045; 74176; 76775; 80048; 80053; 80061; 81001; 81003; 82043; 82140; 82306; 82570; 82652; 82962; 83036; 83690; 83735; 83880; 83970; 84100; 84155; 84156; 84165; 84166; 84300; 84439; 84443; 84481; 84484; 85025; 85610; 85730; 86038; 86255; 86320; 86325; 86704; 86803; 87040-91; 87340; 92526; 92610; 93005; 93306; 93880; 94640; 94664; 96374; 97110; 97116; 97161; 97165; 97530; 97535; 99285-25